=== PATIENT | male | born 1995 | race Caucasian/White ===

== ENCOUNTER 2020-03-10 19:02 | Emergency (ER) | payer OTHER ==
[~2020-03-10] VITALS: Ht 175.3 cm; Wt 68.0 kg
[2020-03-10] MEDS ORDERED: NAPROSYN500 MG PO (20:09)
[2020-03-10] MEDS ORDERED: NORCO 5-325 TA1 EAC1 PO (20:09)
[2020-03-10] MEDS ORDERED: KEFLEX500 M1 PO (20:09)
[2020-03-10 20:40] VITALS: BP 106/51
== END 2020-03-10 20:43 | disposition home or self-care (01) ==
LOC: ER 19:02
DX: S61.244A Puncture wound with foreign body of right ring finger without damage to nail, initial encounter (principal); F17.210 Nicotine dependence, cigarettes, uncomplicated; W22.8XXA Striking against or struck by other objects, initial encounter; Y93.E9 Activity, other interior property and clothing maintenance; Y92.098 Other place in other non-institutional residence as the place of occurrence of the external cause; Y99.9 Unspecified external cause status